=== PATIENT | female | born 1985 | race Caucasian/White ===

== ENCOUNTER 2017-07-13 23:44 | Emergency (ER) | payer SELFPAY ==
[~2017-07-13] VITALS: Ht 160 cm; Wt 54.4 kg
--- NOTE | 2017-07-14 00:01 | PHYS DOC ---
Past History Past Medical History: No Pertinent History Past Surgical History: No Surgical History Smoking: Cigarettes Adult General Chief Complaint Chief Complaint: MECHANICAL FALL HPI HPI Patient is a 31 year old female who presents with fall. She states that approximately 30 minutes ago she fell at home. Fell down 4 stairs. Then on her right hip area. Had neck pain and heard a pop. She refused a wheelchair upon arrival and ambulated in with her significant other. No numbness tingling or weakness of her lower legs or arms. No loss of consciousness. Review of Systems Review of Systems Constitutional: Denies fever or chills Eyes: Denies change in visual acuity, redness, or eye pain HENT: Denies nasal congestion or sore throat Respiratory: Denies cough or shortness of breath Cardiovascular: No chest pain or rib pain GI: Denies abdominal pain, nausea, vomiting, bloody stools or diarrhea : Denies dysuria or hematuria Musculoskeletal: Denies back pain or joint pain. POS Neck pain; more to the left side. Integument: Denies rash; "pustules" scattered about Neurologic: Denies headache, focal weakness or sensory changes Physical Exam Physical Exam Constitutional: Well developed, well nourished, no acute distress, non-toxic appearance. Crying HENT: Normocephalic, atraumatic, hepatic membranes clear bilaterally without hemotympanum. Bilateral external ears normal, oropharynx moist, no oral exudates , nose normal. Eyes: PERRLA, EOMI, conjunctiva normal, no discharge. Neck: Normal range of motion, tenderness diffusely but more to the left suprascapular region, no stridor. Placed in a c-collar upon arrival. Cardiovascular:Heart rate regular rhythm, no murmur Lungs & Thorax: Bilateral breath sounds clear to auscultation Abdomen: Bowel sounds normal, soft, no tenderness, no masses, no pulsatile masses. Skin: Warm, dry, no erythema, no rash. Scattered pustules noted on face and extremities. Back: No tenderness, no CVA tenderness. Extremities: No tenderness, no cyanosis, no clubbing, ROM intact, no edema. Neurologic: Alert and oriented X 3, normal motor function, normal sensory function, no focal deficits noted. [] Radiology/Procedures Radiology/Procedures [address] [address] IMAGING REPORT Signed PATIENT: DERIK HUNT ACCOUNT: [id number] : 1985 LOCATION: ER AGE: 31 SEX: F EXAM STATUS: REG ER ORD. PHYSICIAN: JIGAR REGAN MD REASON: fall down 4 stairs; neck pain PROCEDURE: CT HEAD AND CERVICAL SPINE WO PQRS Compliance Statement: One or more of the following individualized dose reduction techniques were utilized for this examination: 1. Automated exposure control 2. Adjustment of the mA and/or kV according to patient size 3. Use of iterative reconstruction technique CT HEAD AND CERVICAL SPINE WITHOUT CONTRAST History: Fall down 4 stairs, severe posterior neck pain with headache. Comparison: None. Procedure: Axial images are obtained of the head from the skull base through the vertex without IV contrast. Noncontrast helical CT of the cervical spine was performed. Axial, sagittal, and coronal reconstructions were obtained. Findings: The ventricles and sulci are normal for the patient's age. No mass-effect, midline shift, hemorrhage or obvious acute infarction is identified. Basilar cisterns are patent. Bone windows demonstrate no significant calvarial abnormality. The visualized paranasal sinuses are clear. Mastoid air cells are well aerated. There is no evidence of acute fracture or acute malalignment. The vertebral body height and alignment are maintained. No disc space narrowing. The facet joints and spinous processes are intact. There is no narrowing of the central canal. Visualized soft tissues of the neck demonstrate no significant abnormalities. The visualized lung apices are clear. IMPRESSION: 1. No acute intracranial abnormality. 2. No acute fracture of the cervical spine. Electronically signed by: Chadwick Plata MD (07/14/2017 12:35 AM) [facility] DICTATED AND SIGNED BY: CHADWICK PLATA MD DATE: 07/14/1730 CC: JIGAR REGAN MD; PCP,NO ~ Course & Med Decision Making Course & Med Decision Making Evaluated Patient. She initially refused to sit and refused c collar but explained to her that it was required if she chose to stay and be evaluated. She agreed and jewelry removed (gave to S.O) and collar placed and laid supine. At [address] results back and reviewed. Toradol IM and norflex po. Rx for naprosyn and norflex. Home w S.O. UCG done and documented neg [place] Disclaimer [place] Disclaimer This chart was dictated in whole or in part using Voice Recognition software in a busy, high-work load, and often noisy Emergency Department environment. It may contain unintended and wholly unrecognized errors or omissions. Departure Departure: Impression: Primary Impression: Fall (on) (from) other stairs and steps, initial encounter Additional Impression: Acute cervical myofascial strain Disposition: HOME, SELF-CARE Condition: STABLE Referrals: PCP,NO (PCP) Patient Instructions: Cervical Strain and Sprain with Rehab-Sports[facility] Scripts Naproxen (NAPROSYN) 500 Mg Tablet 1 TAB PO BID, #30 TAB Prov: JIGAR REGAN MD 07/14/17 Tizanidine Hcl (ZANAFLEX) 4 Mg Tablet 4 MG PO PRN Q8HRS Y for MUSCLE SPASMS, #14 TAB Prov: JIGAR REGAN MD 07/14/17 Problem Qualifiers Additional Impression: Acute cervical myofascial strain Encounter type: initial encounter Qualified Codes: S16.1XXA - Strain of muscle, fascia and tendon at neck level, initial encounter JIGAR REGAN MD Jul 14, 2017 00:01
--- NOTE | 2017-07-14 00:38 | RAD ---
RS Compliance Statement: One or more of the following individualized dose reduction techniques were utilized for this examination: 1. Automated exposure control 2. Adjustment of the mA and/or kV according to patient size 3. Use of iterative reconstruction technique CT HEAD AND CERVICAL SPINE WITHOUT CONTRAST History: Fall down 4 stairs, severe posterior neck pain with headache. Comparison: None. Procedure: Axial images are obtained of the head from the skull base through the vertex without IV contrast. Noncontrast helical CT of the cervical spine was performed. Axial, sagittal, and coronal reconstructions were obtained. Findings: The ventricles and sulci are normal for the patient's age. No mass-effect, midline shift, hemorrhage or obvious acute infarction is identified. Basilar cisterns are patent. Bone windows demonstrate no significant calvarial abnormality. The visualized paranasal sinuses are clear. Mastoid air cells are well aerated. There is no evidence of acute fracture or acute malalignment. The vertebral body height and alignment are maintained. No disc space narrowing. The facet joints and spinous processes are intact. There is no narrowing of the central canal. Visualized soft tissues of the neck demonstrate no significant abnormalities. The visualized lung apices are clear. IMPRESSION: 1. No acute intracranial abnormality. 2. No acute fracture of the cervical spine. Electronically signed by: Chadwick Mcallister MD (07/14/2017 12:35 AM) [facility]
[2017-07-14] MEDS ORDERED: NAPR500T PO (00:57)
[2017-07-14] MEDS ORDERED: TIZA4TAB8 PO (00:57)
[2017-07-14] MEDS: KETOROLAC 60 MG/2 ML VIAL. IM ONE (01:00)
[2017-07-14] MEDS: ORPHENADRINE ER 100 MG TABLET.ER PO ONE (01:00)
[2017-07-14 01:09] VITALS: BP 103/78
[2017-07-14] MEDS ORDERED: ONDANSETRON ODT 4 MG TAB.RAPDIS ONE (01:21)
[2017-07-14] MEDS: ONDANSETRON ODT 4 MG TAB.RAPDIS PO ONE (01:22)
== END 2017-07-14 01:19 | disposition home or self-care (01) ==
LOC: ER 23:44
DX: S16.1XXA Strain of muscle, fascia and tendon at neck level, initial encounter (principal); M25.551 Pain in right hip; F17.210 Nicotine dependence, cigarettes, uncomplicated; W10.8XXA Fall (on) (from) other stairs and steps, initial encounter; Y93.89 Activity, other specified; Y99.8 Other external cause status; Y92.89 Other specified places as the place of occurrence of the external cause
CPT/HCPCS: 70450; 72125; 81025; 96372; 99284; J1885; Q0162